=== PATIENT | male | born 1970 | race Caucasian/White ===

== ENCOUNTER 2020-03-17 17:09 | Emergency (ER) | payer SELFPAY ==
[2020-03-17] MEDS ORDERED: AMOX/K CLAV875 M1 PO (18:15)
[2020-03-17 18:19] VITALS: BP 167/88
== END 2020-03-17 18:24 | disposition home or self-care (01) | DRG 153 ==
LOC: ED 17:09
DX: J02.0 Streptococcal pharyngitis (principal)